=== PATIENT | male | born 1945 | race Asian ===

== ENCOUNTER → 2017-10-27 | Outpatient (CLI) | payer OTHER ==
[~2017-10-27] MED LIST: METF500T7 PO
[2017-10-27 18:04] LABS: CALCIUM, TOTAL 9.2 mg/dL (8.8-10.5); CREATININE 1.57 mg/dL (0.60-1.30); POTASSIUM 4.7 mmol/L (3.5-5.1)
== END | disposition home or self-care (01) ==
LOC: MSR 17:14
PROVIDERS: ATTEND Internal Medicine
DX: J98.4 Other disorders of lung (principal); I70.0 Atherosclerosis of aorta; Z77.090 Contact with and (suspected) exposure to asbestos; Z79.899 Other long term (current) drug therapy